=== PATIENT | female | born 2000 | race Caucasian/White ===

== ENCOUNTER 2018-07-20 21:17 | Emergency (ER) | payer OTHER ==
[~2018-07-20] VITALS: Ht 167.6 cm; Wt 99.3 kg
[2018-07-20 21:22] VITALS: Ht 167.6 cm; Wt 99.3 kg
[2018-07-20 23:52] VITALS: BP 131/82
== END 2018-07-20 23:52 | disposition home or self-care (01) ==
LOC: ED 21:17
DX: L02.31 Cutaneous abscess of buttock (principal); R03.0 Elevated blood-pressure reading, without diagnosis of hypertension
CPT/HCPCS: J2001

== ENCOUNTER 2018-07-24 08:30 | Emergency (ER) | payer OTHER ==
[~2018-07-24] VITALS: Ht 157.5 cm; Wt 100.7 kg
[2018-07-24 08:35] VITALS: Ht 157.5 cm; Wt 100.7 kg
[2018-07-24 09:04] VITALS: BP 127/59
== END 2018-07-24 09:04 | disposition home or self-care (01) ==
LOC: ED 08:30
DX: L02.212 Cutaneous abscess of back [any part, except buttock and flank] (principal)

== ENCOUNTER 2018-12-31 23:43 | Emergency (ER) | payer OTHER ==
[~2018-12-31] VITALS: Ht 157.5 cm; Wt 99.0 kg
[2018-12-31 23:54] VITALS: BP 154/80; Ht 157.5 cm; Wt 99.0 kg
== END 2019-01-01 03:02 | disposition left against medical advice (07) ==
LOC: ED 23:43
DX: Z53.21 Procedure and treatment not carried out due to patient leaving prior to being seen by health care provider (principal)